=== PATIENT | male | born 1945 | race Caucasian/White ===

== ENCOUNTER 2022-09-08 06:00 | Day surgery (SDC) | payer OTHER ==
[~2022-09-08] VITALS: Ht 193 cm; Wt 103.4 kg
[2022-09-08] MEDS ORDERED: MEPERIDINE HCL/PF 25 MG/ML DISP.SYRIN ONE (06:59)
[2022-09-08] MEDS ORDERED: MIDAZOLAM HCL 5 MG/5 ML VIAL ONE (06:59)
[2022-09-08 17:32] VITALS: BP_SYST 129
[2022-09-08] MEDS ORDERED: LOSA100T23 PO (17:58)
[2022-09-08] MEDS ORDERED: SACU1TAB PO (17:58)
[2022-09-08] MEDS ORDERED: TAMS0.4C96 PO (17:58)
[2022-09-08] MEDS ORDERED: EMPA10TA PO (17:58)
[2022-09-08] MEDS ORDERED: FURO40TA5 PO (17:58)
[2022-09-08] MEDS ORDERED: HYDR4TAB57 PO (17:58)
[2022-09-08] MEDS ORDERED: ATOR10TA68 PO (17:58)
[2022-09-08] MEDS ORDERED: SPIR25TA6 PO (17:58)
[2022-09-08] MEDS ORDERED: VERA180T59 PO (17:58)
== END 2022-09-08 11:58 | disposition admitted as inpatient to this hospital (09) ==
LOC: SDS 06:00
PROVIDERS: ATTEND Internal Medicine Gastroenterology
DX: Z12.11 Encounter for screening for malignant neoplasm of colon (principal); K29.50 Unspecified chronic gastritis without bleeding; I48.91 Unspecified atrial fibrillation; I11.0 Hypertensive heart disease with heart failure; I50.9 Heart failure, unspecified; E78.5 Hyperlipidemia, unspecified; J44.9 Chronic obstructive pulmonary disease, unspecified; G47.00 Insomnia, unspecified; I25.10 Atherosclerotic heart disease of native coronary artery without angina pectoris; Z85.038 Personal history of other malignant neoplasm of large intestine; Z20.822 Contact with and (suspected) exposure to COVID-19; Z79.899 Other long term (current) drug therapy
CPT/HCPCS: 44389; 43239; 87426; 87081; 36415; 88305; 88312; 99152; 99153; G0378; J2250; 88313; J2175

== ENCOUNTER 2022-09-08 12:06 | Inpatient (IN) | payer OTHER ==
[~2022-09-08] VITALS: Ht 193 cm; Wt 116.1 kg
--- NOTE | 2022-09-08 12:10 | NUR ---
Pt brought in by ROOFING CONTRACTOR gave report of mechanical fall Pt complains of right side hip and right knee pain. Pt denies LOC, skin integrity complete. Pt completed post colonoscopy EGD with drowsiness from noted medication Versed 5 mg and Demerol 50 mg. Pt is awake alert oriented x3.
[2022-09-08 12:28] VITALS: BP_SYST 152
--- NOTE | 2022-09-08 12:30 | NUR ---
ER at bedside examining patient.
--- NOTE | 2022-09-08 12:53 | NUR ---
GRAY Garcia provided EKG service.
[2022-09-08] MEDS ORDERED: MORPHINE 4 MG INJ. 4 MG/ML VIAL IVP ONE ×2 (14:00→16:30)
[2022-09-08 14:48] LABS: BASOPHILS % (AUTO) 0.4 % (0.0-2.0); EOSINOPHILS # (AUTO) 0.1 K/uL (0.0-0.4); HEMATOCRIT 41.7 % (36-54); HEMOGLOBIN 13.8 g/dL (14.0-18.0); LYMPHOCYTES # (AUTO) 0.6 K/uL (1.0-5.5); LYMPHOCYTES % (AUTO) 7.5 % (20.5-51.5); MEAN CORPUSCULAR HEMOGLOBIN 30 pg (27-31); MEAN CORPUSCULAR HGB CONC 33 % (32-36); MEAN CORPUSCULAR VOLUME 91 fL (79.0-98.0); MONOCYTES # (AUTO) 0.4 K/uL (0.0-1.0); MONOCYTES % (AUTO) 5.2 % (1.7-9.3); NEUTROPHILS # (AUTO) 6.3 K/uL (1.8-7.7); NEUTROPHILS % (AUTO) 85.9 % (40.0-70.0); PLATELET COUNT (AUTO) 192 K/uL (130-430); RED CELL DISTRIBUTION WIDTH 15.6 % (9.0-15.0); WHITE BLOOD COUNT (AUTO) 7.4 K/uL (4.8-10.8)
[2022-09-08 15:05] LABS: PROTHROMBIN TIME 10.6 SECS (9.5-12.5)
[2022-09-08 15:08] LABS: ALANINE AMINOTRANSFERASE 18 U/L (12-78); ALBUMIN 3.6 g/dL (3.4-4.8); ANION GAP 8 (5-15); ASPARTATE AMINOTRANSFERASE 23 U/L (10-37); CALCIUM 8.7 mg/dL (8.4-11.0); CHLORIDE 102 mmol/L (98-107); CREATININE 1.14 mg/dL (0.55-1.30); GLUCOSE 97 mg/dL (70-99); UREA NITROGEN, BLOOD 15 mg/dL (8-21)
[2022-09-08] MEDS ORDERED: ACETAMINOPHEN 325 MG TABLET PO PRN (17:30)
--- NOTE | 2022-09-08 17:37 | NUR ---
IV TO RIGHT HAND 22 GAUGE FLUSHES, NO INFILLTRATION NOTED
--- NOTE | 2022-09-08 17:47 | NUR ---
Admit bed requested Patient will be admitted to care of . Admitted to MEDSURG unit. Diagnosis HIP FX Inpatient (Yes or No) Y Observation (Yes or No) N Orientation concerns or request close to nursing station (Yes or No) N Covid Status On vent or bipap NO Isolation requirements NO Needs a sitter NO From Home (Yes or if No enter name of facility) YES Requires Dialysis (Yes or No) NO Med Rec Completed (Yes of No) YES
--- NOTE | 2022-09-08 17:51 | NUR ---
CONSULT: CONSULT FOR DR JONATHAN CAMPBELL CALLED THROUGH DR DE SANTIAGO
[2022-09-08] MEDS ORDERED: HYDR4TAB57 PO (17:58)
[2022-09-08] MEDS ORDERED: SACU1TAB PO (17:58)
[2022-09-08] MEDS ORDERED: TAMS0.4C96 PO (17:58)
[2022-09-08] MEDS ORDERED: EMPA10TA PO (17:58)
[2022-09-08] MEDS ORDERED: VERA180T59 PO (17:58)
[2022-09-08] MEDS ORDERED: SPIR25TA6 PO (17:58)
[2022-09-08] MEDS ORDERED: FURO40TA5 PO (17:58)
[2022-09-08] MEDS ORDERED: ATOR10TA68 PO (17:58)
[2022-09-08] MEDS ORDERED: LOSA100T23 PO (17:58)
--- NOTE | 2022-09-08 18:21 | NUR ---
Patient will be admitted to care of PATRICIA Argueta. Admitted to Medsurg unit. Will go to room 116a. Belongings list completed. Complete and up to date summary report printed. SBAR report to be given at bedside with opportunity for questions.
[2022-09-08] MEDS: MORPHINE 4 MG INJ. 4 MG/ML VIAL IVP PRN ×2 (20:30→21:06)
--- NOTE | 2022-09-08 20:48 | NUR ---
Paged Dr. Dash, s/w Graham
[2022-09-08] MEDS ORDERED: hydrALAZINE HCL 20 MG/ML VIAL IVP PRN (22:45)
[2022-09-08] MEDS: TEMAZEPAM 7.5 MG CAPSULE PO PRN (22:53)
[2022-09-09] MEDS: MORPHINE 4 MG INJ. 4 MG/ML VIAL IVP PRN ×6 (00:35→21:22)
[2022-09-09 01:09] VITALS: BP_SYST 139
--- NOTE | 2022-09-09 04:36 | NUR ---
CONSULTATION PAGED REASON FOR CONSULTATION: HIP FX, CARDIAC CLEARANCE FOR SURGERY WAS CONSULT CALLED? Y PERSON WHO WAS NOTIFIED: RAFIQ CONSULTING PHYSICIAN: DR. COFFEY REQUESTING PHYSICIAN: DR. FRANCIS
--- NOTE | 2022-09-09 06:00 | NUR ---
PATIENT HAD NO OUTPUT ON NOC SHIFT RN KATHARINA AND SENSOR TECHNICIAN NURSE LU ARE AWARE Addendum: 09/09/22 at 0601 by Emily Stringer CNA Amended: Links added.
--- NOTE | 2022-09-09 06:40 | NUR ---
CONSULTATION PAGED REASON FOR CONSULTATION:URINARY RETENTION; 2t BPH HX WAS CONSULT CALLED?Y PERSON WHO WAS NOTIFIED:VOICEMAIL LEFT CONSULTING PHYSICIAN:JOSELIN CARMEN SMALL ELECTRIC ENGINE TECHNICIAN SPECIALTY:UROLOGY SMALL ELECTRIC ENGINE TECHNICIAN PHONE NUMBER:[phone] REQUESTING PHYSICIAN CORNELL HESTER
[2022-09-09 07:33] LABS: BASOPHILS % (AUTO) 0.3 % (0.0-2.0); EOSINOPHILS # (AUTO) 0.1 K/uL (0.0-0.4); HEMATOCRIT 42.2 % (36-54); LYMPHOCYTES # (AUTO) 0.5 K/uL (1.0-5.5); LYMPHOCYTES % (AUTO) 4.8 % (20.5-51.5); MEAN CORPUSCULAR HEMOGLOBIN 30 pg (27-31); MEAN CORPUSCULAR HGB CONC 33 % (32-36); MEAN CORPUSCULAR VOLUME 90 fL (79.0-98.0); MONOCYTES # (AUTO) 0.4 K/uL (0.0-1.0); MONOCYTES % (AUTO) 3.8 % (1.7-9.3); NEUTROPHILS % (AUTO) 90.1 % (40.0-70.0); PLATELET COUNT (AUTO) 155 K/uL (130-430); RED BLOOD CELL COUNT(AUTO) 4.69 MIL/uL (4.2-6.2); RED CELL DISTRIBUTION WIDTH 15.5 % (9.0-15.0)
[2022-09-09 08:00] VITALS: BP_SYST 151
[2022-09-09 08:43] LABS: ALANINE AMINOTRANSFERASE 17 U/L (12-78); ALBUMIN 3.6 g/dL (3.4-4.8); ANION GAP 13 (5-15); ASPARTATE AMINOTRANSFERASE 22 U/L (10-37); CALCIUM 8.7 mg/dL (8.4-11.0); CHLORIDE 103 mmol/L (98-107); CREATININE 1.07 mg/dL (0.55-1.30); GLUCOSE 115 mg/dL (70-99); UREA NITROGEN, BLOOD 19 mg/dL (8-21)
[2022-09-09 11:05] LABS: BILIRUBIN,URINE 1+ (NEGATIVE); BLOOD, URINE 3+ (NEGATIVE); COLOR,URINE YELLOW (YELLOW); GLUCOSE,URINE 1+ (NEGATIVE); KETONES,URINE 1+ (NEGATIVE); LEUKOCYTE ESTERASE ,URINE NEGATIVE (NEGATIVE); NITRITE, URINE NEGATIVE (NEGATIVE); PH,URINE 5.5 (5.0-8.0); PROTEIN URINE 1+ (NEGATIVE); UROBILINOGEN,URINE 0.2 (0.2-1.0)
[2022-09-09 11:07] LABS: CLARITY/URINE CLEAR (CLEAR)
[2022-09-09 11:27] LABS: BACTERIA,URINE FEW /HPF (None Seen); MUCUS,URINE 1+ /LPF (None Seen); RBC,URINE 20-50 /HPF (0-3); WBC,URINE 0-3 /HPF (0-3)
[2022-09-09] MEDS: FINASTERIDE 5 MG TABLET (PROSCAR) PO SCH (12:40)
[2022-09-09] MEDS: TAMSULOSIN HCL 0.4 MG CAP PO SCH (12:40)
[2022-09-09 12:41] VITALS: BP_SYST 152
--- NOTE | 2022-09-09 14:20 | NUR ---
DR FRANCIS PAGED FOUR TIMES FOR MED REC AND PAIN MED ORDERS FOR PT. A&O, VSS, C/O PAIN IN R HIP. UROLOGIST INSERTED SWANSON CATHETER AT BEDSIDE @1000, VERY DIFFICULT INSERTION. PT GIVEN MORPHINE NEEDED FOR PAIN BUT PATIENT STATES ITS NOT ENOUGH. FALL PRECAUTIONS IN PLACE, WAITING FOR CALL BACK FROM
--- NOTE | 2022-09-09 14:38 | NUR ---
CARE ENDORSED TO ONCOMING RN
--- NOTE | 2022-09-09 14:58 | NUR ---
Social service assessment: The patient is a 76 year old male who is alert and oriented. I completed an initial assessment with the patient at bedside. The patient resides in a single-story home with his and granddaughter. Prior to his admission to the hospital, he was using no assistive devices. He was independent with his care needs and still able to drive. He does not have a Power of Nuclear Supervising Operator. His biggest form of support is his family. his PCP is Dr. Mckenzie in [place]. The discharge plan is to return home with his . The patient was advised that at time of discharge, he will be assessed for appropriate needs and services. The patient states he is looking to have PT home health at time of discharge. The patient states he has used home health in the past, but can not recall what agency he was using. The patient is in agreement to the discharge plan. At time of discharge, the patient states his will transport him home. Addendum: 09/09/22 at 1506 by Precious HERNANDEZ Amended: Links added.
[2022-09-09] MEDS ORDERED: TAMSULOSIN HCL 0.4 MG CAP PO SCH (15:30)
[2022-09-09] MEDS ORDERED: FUROSEMIDE 40 MG TABLET PO ONE (15:45)
[2022-09-09] MEDS ORDERED: ATORVASTATIN 10 MG TABLET PO ONE (15:45)
[2022-09-09] MEDS ORDERED: SPIRONOLACTONE 25 MG TABLET (ALDACTONE) PO ONE (15:45)
[2022-09-09 16:34] VITALS: BP_SYST 150
[2022-09-09 20:00] VITALS: BP_SYST 114
[2022-09-09] MEDS: SACUBITRIL/VALSARTAN 24 MG-26 MG 1 TABLET PO SCH (20:51)
[2022-09-09] MEDS: FUROSEMIDE 40 MG TABLET PO SCH (20:52)
[2022-09-10] VITALS: BP_SYST 125
[2022-09-10] MEDS: MORPHINE 4 MG INJ. 4 MG/ML VIAL IVP PRN (01:51)
[2022-09-10 04:00] VITALS: BP_SYST 136
[2022-09-10 08:00] VITALS: BP_SYST 162
--- NOTE | 2022-09-10 08:00 | NUR ---
Start of shift. Pt sitting up in bed. Pt is NPO for surgery today for fx. right hip. No SOB/resp distress or chest pain/discomfort noted at this time. Call light within reach. IV in right hand intact and patent.
[2022-09-10] MEDS: SPIRONOLACTONE 25 MG TABLET (ALDACTONE) PO SCH (08:39)
[2022-09-10] MEDS: FUROSEMIDE 40 MG TABLET PO SCH ×3 (08:40→21:26)
[2022-09-10] MEDS: TAMSULOSIN HCL 0.4 MG CAP PO SCH (08:40)
[2022-09-10] MEDS: SACUBITRIL/VALSARTAN 24 MG-26 MG 1 TABLET PO SCH ×2 (08:40→21:27)
[2022-09-10] MEDS: ATORVASTATIN 10 MG TABLET PO SCH (08:40)
[2022-09-10] MEDS: FINASTERIDE 5 MG TABLET (PROSCAR) PO SCH (08:41)
--- NOTE | 2022-09-10 09:35 | NUR ---
OR move Pt off the floor via bed to OR for right hip surgery.
[2022-09-10] MEDS ORDERED: MEPERIDINE HCL/PF 50 MG/ML VIAL ONE (09:40)
[2022-09-10] MEDS ORDERED: NS IRRIG SOLN 1000 ML IR ONE (09:40)
[2022-09-10] MEDS ORDERED: LR 1,000 ML IV.SOLN IV ONE (09:40)
[2022-09-10] MEDS ORDERED: SEVOFLURANE 15 MIN GAS INH ONE (09:40)
[2022-09-10] MEDS ORDERED: ceFAZolin SODIUM 2 GM VIAL ONE (09:40)
[2022-09-10] MEDS ORDERED: PROPOFOL 200MG/ 20ML VIAL (DIPRIVAN) IV ONE (09:40)
[2022-09-10] MEDS ORDERED: VANCOMYCIN HCL 1000 MG/VIAL IV ONE (09:40)
[2022-09-10] MEDS ORDERED: fentaNYL CITRATE/PF 100 MCG/2 ML AMP ONE (09:40)
[2022-09-10] MEDS ORDERED: BUPIVACAINE /EPINEPHRINE/PF 0.5% 30 ML VIAL INJ ONE (09:40)
[2022-09-10] MEDS ORDERED: NS 1000 ML IV.SOLN IV ONE (09:40)
[2022-09-10] MEDS ORDERED: ONDANSETRON HCL 4 MG/2 ML VIAL ONE (09:40)
[2022-09-10] MEDS ORDERED: METOCLOPRAMIDE HCL 10 MG/2 ML VIAL IVP PRN (10:30)
[2022-09-10] MEDS ORDERED: ONDANSETRON HCL 4 MG/2 ML VIAL IVP PRN (10:30)
[2022-09-10] MEDS ORDERED: LR 1,000 ML IV SCH (10:30)
[2022-09-10] MEDS ORDERED: MEPERIDINE HCL/PF 25 MG/ML DISP.SYRIN IVP PRN (10:30)
[2022-09-10 10:57] VITALS: BP_SYST 162
[2022-09-10] MEDS ORDERED: HYDROmorphone 1 MG/ML INJ. CARTRIDGE IVP PRN ×3 (11:00)
[2022-09-10] MEDS ORDERED: NALOXONE HCL 0.4 MG/ML AMP (NARCAN) IVP PRN ×4 (12:15→16:00)
[2022-09-10] MEDS ORDERED: HYDROmorphone 1 MG/ML INJ. CARTRIDGE ONE (12:35)
[2022-09-10] MEDS: HYDROmorphone 1 MG/ML INJ. CARTRIDGE IVP PRN ×3 (12:37→18:43)
[2022-09-10] MEDS: ceFAZolin SODIUM 2 GM in NS 100 ML IV SCH ×2 (12:52→21:31)
--- NOTE | 2022-09-10 13:40 | NUR ---
Note Pt back to floor from OR via bed. Right hip dressing CDI and abductor pillow between legs. Pt was given ice chips to swallow to moisten mouth. Also IS given and instructed use. Call light within reach.
--- NOTE | 2022-09-10 15:20 | NUR ---
Note Pt was given ice chips and instructed to use IS q1 WA 10X. Pt tolerating well. Pt was given Dilaudid 0.4mg IVP and PT at bedside to work with pt at this time. Pt denies any needs at this time. Call light within reach.
[2022-09-10 16:09] VITALS: BP_SYST 154
--- NOTE | 2022-09-10 19:00 | NUR ---
Note Pt's has been at bedside assisting pt in eating his dinner. Pt's IV in left arm intact and patent infusing IVF's well. Pt's shah catheter intact and draining well. Pt stable. Call light within reach. Pt's abductor in place between legs.
[2022-09-10 20:00] VITALS: BP_SYST 149
[2022-09-10] MEDS: ACETAMINOPHEN 500 MG TABLET PO SCH (21:27)
[2022-09-10] MEDS: oxyCODONE HCL 5 MG TABLET PO PRN (23:28)
[2022-09-11 01:35] VITALS: BP_SYST 141
[2022-09-11] MEDS: oxyCODONE HCL 5 MG TABLET PO PRN ×4 (04:35→23:33)
[2022-09-11] MEDS: ceFAZolin SODIUM 2 GM in NS 100 ML IV SCH (04:37)
[2022-09-11] MEDS: ACETAMINOPHEN 500 MG TABLET PO SCH ×3 (06:00→23:03)
[2022-09-11 08:08] LABS: ALANINE AMINOTRANSFERASE 13 U/L (12-78); ALBUMIN 3.4 g/dL (3.4-4.8); ANION GAP 11 (5-15); ASPARTATE AMINOTRANSFERASE 25 U/L (10-37); CALCIUM 8.2 mg/dL (8.4-11.0); CHLORIDE 99 mmol/L (98-107); CREATININE 1.17 mg/dL (0.55-1.30); GLUCOSE 125 mg/dL (70-99); TOTAL BILIRUBIN 1.4 mg/dL (0.0-1.0); UREA NITROGEN, BLOOD 22 mg/dL (8-21)
[2022-09-11 08:46] LABS: BASOPHILS % (AUTO) 0.3 % (0.0-2.0); EOSINOPHILS % (AUTO) 0.1 % (0.0-4.0); HEMATOCRIT 42.9 % (36-54); HEMOGLOBIN 14.4 g/dL (14.0-18.0); LYMPHOCYTES # (AUTO) 0.4 K/uL (1.0-5.5); LYMPHOCYTES % (AUTO) 3.6 % (20.5-51.5); MEAN CORPUSCULAR HEMOGLOBIN 31 pg (27-31); MEAN CORPUSCULAR HGB CONC 34 % (32-36); MEAN CORPUSCULAR VOLUME 91 fL (79.0-98.0); MONOCYTES # (AUTO) 0.7 K/uL (0.0-1.0); MONOCYTES % (AUTO) 7.1 % (1.7-9.3); NEUTROPHILS # (AUTO) 8.8 K/uL (1.8-7.7); NEUTROPHILS % (AUTO) 88.9 % (40.0-70.0); PLATELET COUNT (AUTO) 134 K/uL (130-430); RED BLOOD CELL COUNT(AUTO) 4.71 MIL/uL (4.2-6.2); RED CELL DISTRIBUTION WIDTH 15.5 % (9.0-15.0); WHITE BLOOD COUNT (AUTO) 9.9 K/uL (4.8-10.8)
[2022-09-11] MEDS: FUROSEMIDE 40 MG TABLET PO SCH ×3 (08:53→20:26)
[2022-09-11] MEDS: ATORVASTATIN 10 MG TABLET PO SCH (08:53)
[2022-09-11] MEDS: TAMSULOSIN HCL 0.4 MG CAP PO SCH (08:54)
[2022-09-11] MEDS: SACUBITRIL/VALSARTAN 24 MG-26 MG 1 TABLET PO SCH ×2 (08:55→20:25)
[2022-09-11] MEDS: SPIRONOLACTONE 25 MG TABLET (ALDACTONE) PO SCH (08:55)
[2022-09-11] MEDS: FINASTERIDE 5 MG TABLET (PROSCAR) PO SCH (08:55)
[2022-09-11] MEDS: HYDROmorphone 1 MG/ML INJ. CARTRIDGE IVP PRN (10:04)
[2022-09-11 11:22] VITALS: BP_SYST 132
[2022-09-11] MEDS ORDERED: POTASSIUM CHLORIDE 20 MEQ/PKT PACKET PO ONE (12:15)
--- NOTE | 2022-09-11 15:08 | NUR ---
Dietitian Recommendations * 2 gm Na diet, Pepe BID (supplement yields 180 kcal/day, 5 gm protein/day) * High-protein snacks TID between meals (peanut butter cup w/ banana, turkey slices and carrot sticks, and Czech yogurt) * Encourage good PO intakes LP, MS, RD Please refer to Nutrition Assessment for details. Addendum: 09/11/22 at [address] Amended: Links added.
--- NOTE | 2022-09-11 15:34 | NUR ---
PHYSICAL THERAPY CO-SIGN The Physical Therapy Progress Notes documented by Master Control Technician have been reviewed. Reviewed/Co-Signed by: Tristen Issa Documentation Done by:MARELY CLIFTON Addendum: 09/11/22 at 1534 by Tristen Issa PT Amended: Links added.
[2022-09-11 16:55] VITALS: BP_SYST 129
--- NOTE | 2022-09-11 19:13 | NUR ---
pt a&o. refusing abduction wedge. incision c/d/i. pain medication given prn. fall precautions in place. therapy worked with patient. alyssa patent. ostomy self care.
[2022-09-11 19:56] VITALS: BP_SYST 101
--- NOTE | 2022-09-11 20:00 | NUR ---
Report received from day shift RN for continuity of care. Patient in stable condition.
--- NOTE | 2022-09-11 20:07 | NUR ---
Report received from day shift RN for continuity of care. Patient stable. No distress noted. Abductor pillow at bedside. Patient wants to use at night.
[2022-09-12] VITALS: BP_SYST 124
[2022-09-12 04:00] VITALS: BP_SYST 128
[2022-09-12] MEDS: oxyCODONE HCL 5 MG TABLET PO PRN ×4 (05:19→21:44)
[2022-09-12] MEDS: ACETAMINOPHEN 500 MG TABLET PO SCH ×2 (05:35→14:54)
[2022-09-12 06:22] LABS: ANION GAP 4 (5-15); CALCIUM 8.2 mg/dL (8.4-11.0); CHLORIDE 99 mmol/L (98-107); CREATININE 1.11 mg/dL (0.55-1.30); GLUCOSE 113 mg/dL (70-99); UREA NITROGEN, BLOOD 24 mg/dL (8-21)
--- NOTE | 2022-09-12 06:52 | NUR ---
Dr. Urias paged regarding patient's lab values. Awaiting call back.
--- NOTE | 2022-09-12 07:06 | NUR ---
Reported to Dr. Urias lab results. New orders noted and carried out.
--- NOTE | 2022-09-12 07:12 | NUR ---
Report given to day shift RN for continuity of care. Patient stable throughout the whole night.
--- NOTE | 2022-09-12 07:30 | NUR ---
MORNING ROUNDS: PATIENT AWAKE DURING ROUNDS. IV AT LEFT HAND. RIGHT HIP DRESSING CLEAN AND DRY. SWANSON DRAINING TO JIMMIE URINE.CALL LIGHT WITH IN REACH. BED LOCKED AT LOWEST POSITION. CONTINUE TO MONITOR.
--- NOTE | 2022-09-12 10:00 | NUR ---
IV OUT: TRIED IV INSERTION. NO SUCCESS. HARD STICK.WILL LET OTHER NURSES TRY LATER.PATIENT WANTS TO REST.
[2022-09-12] MEDS: SPIRONOLACTONE 25 MG TABLET (ALDACTONE) PO SCH (10:35)
[2022-09-12] MEDS: FUROSEMIDE 40 MG TABLET PO SCH ×3 (10:35→20:35)
[2022-09-12] MEDS: SACUBITRIL/VALSARTAN 24 MG-26 MG 1 TABLET PO SCH ×3 (10:36→23:12)
[2022-09-12] MEDS: FINASTERIDE 5 MG TABLET (PROSCAR) PO SCH (10:36)
[2022-09-12] MEDS: TAMSULOSIN HCL 0.4 MG CAP PO SCH (10:36)
[2022-09-12] MEDS: POTASSIUM CHLORIDE 20 MEQ TAB.PRT.SR PO PRN (10:38)
[2022-09-12] MEDS: ATORVASTATIN 10 MG TABLET PO SCH (10:39)
[2022-09-12 11:11] VITALS: BP_SYST 105
[2022-09-12] MEDS ORDERED: POTASSIUM CHLORIDE 20 MEQ TAB.PRT.SR PO ONE (11:30)
--- NOTE | 2022-09-12 14:30 | NUR ---
PHYSICAL THERAPY: PHYSICAL THERAPIST WORKING WITH THE PATIENT. PATIENT SITTING ON THE CHAIR. STABLE.
--- NOTE | 2022-09-12 19:00 | NUR ---
END OF SHIFT: ENDORSED TO NIGHT NURSE,PATIENT NEEDS NEW IV SITE. RIGHT HIP DRESSING, CLEAN AND DRY.CALL LIGHT WITH IN REACH. BED LOCKED AT LOWEST POSITION. SWANSON IN SITU. STABLE.
[2022-09-12 19:08] VITALS: BP_SYST 134
--- NOTE | 2022-09-12 19:30 | NUR ---
OPENING NOTE PT LYING IN BED, EYES OPENED. BREATHING EVEN AND NONLABORED. VSS. NO S/S OF ACUTE DISTRESS. PT REPORTED HIP PAIN 12/19. WAITING FOR NEXT DOSE OF PAIN MEDICATION. SWANSON CATHETER IN SITU. BED ALARM ON AND LOWEST POSITION. SAFETY CHECKS MADE. CALL LIGHT IN REACH. CONTINUE TO MONITOR.
[2022-09-12 20:00] VITALS: BP_SYST 112
[2022-09-12] MEDS: SENNOSIDES 8.6 MG TABLET PO SCH (20:35)
[2022-09-13 01:24] VITALS: BP_SYST 118
[2022-09-13 02:13] VITALS: BP_SYST 112
--- NOTE | 2022-09-13 03:30 | NUR ---
IV INSERTION TRIED TO OBTAIN IV ACCESS BUT NOT SUCCESS. PT REFUSED ANOTHER TRIAL.
[2022-09-13] MEDS: oxyCODONE HCL 5 MG TABLET PO PRN ×3 (04:06→20:35)
--- NOTE | 2022-09-13 07:30 | NUR ---
MORNING ROUNDS: PATIENT RESTING QUIETLY ON HIS BED. NO IV ACCESS,PATIENT REFUSED IV INSERTION. RIGHT HIP DRESSING CLEAN AND DRY. SWANSON IN SITU DRAINING TO JIMMIE URINE. CALL LIGHT WITH IN REACH. BED LOCKED AT LOWEST POSITION. NO ACUTE DISTRESS.
--- NOTE | 2022-09-13 07:32 | NUR ---
CLOSING NOTE PT LYING IN BED, EYES OPENED. BREATHING EVEN AND NONLABORED. VSS. NO S/S OF ACUTE DISTRESS OR PAIN. BED ALARM ON AND LOWEST POSITION. SAFETY CHECKS MADE. CALL LIGHT IN REACH. ENDORSED TO DAY SHIFT NURSE
[2022-09-13 08:00] VITALS: BP_SYST 131
[2022-09-13] MEDS ORDERED: ENOXAPARIN SODIUM 40 MG/0.4 ML SYRINGE SUBCUT SCH (09:00)
[2022-09-13] MEDS: TAMSULOSIN HCL 0.4 MG CAP PO SCH (09:42)
[2022-09-13] MEDS: FUROSEMIDE 40 MG TABLET PO SCH ×3 (09:44→20:36)
[2022-09-13] MEDS: POTASSIUM CHLORIDE 20 MEQ TAB.PRT.SR PO PRN (09:47)
[2022-09-13] MEDS: ATORVASTATIN 10 MG TABLET PO SCH (09:49)
[2022-09-13] MEDS: SPIRONOLACTONE 25 MG TABLET (ALDACTONE) PO SCH (09:49)
[2022-09-13] MEDS: SACUBITRIL/VALSARTAN 24 MG-26 MG 1 TABLET PO SCH ×2 (09:51→20:33)
[2022-09-13] MEDS: FINASTERIDE 5 MG TABLET (PROSCAR) PO SCH (09:54)
--- NOTE | 2022-09-13 11:56 | NUR ---
MD ROUNDS: INFORMED DR HUFF PATIENT REFUSED IV INSERTION.
[2022-09-13] MEDS: ACETAMINOPHEN 500 MG TABLET PO SCH ×2 (14:36→21:19)
[2022-09-13 16:00] VITALS: BP_SYST 115
--- NOTE | 2022-09-13 18:43 | NUR ---
END OF SHIFT: PATIENT WATCHING TV.RELAXED. RIGHT HIP DRESSING CLEAN AND DRY. SWANSON INTACT. NOT IN ANY DISTRESS.
[2022-09-13 19:55] VITALS: BP_SYST 138
--- NOTE | 2022-09-13 20:00 | NUR ---
RECEIVED PT IN BED, AOX4, DENIED ANY SOB, CP OR PAIN, R HIP WITH PRESSURE DSG, CLEAN, DRY AND INTACT, LLQ WITH COLOSTOMY, CLEAN AND DRY SITE, PT HAS NO IV ACCESS AND WAS INFROMED DR. HUFF IS AWARE, F/C DRAINING UNDER GRAVITY, YELLOW AND CLEAR URINE, BUTTOCK WITH REDNESS AND APLIED WITH Z-GUARD, WILL CONTINUE WITH POC
[2022-09-13] MEDS: TEMAZEPAM 7.5 MG CAPSULE PO PRN (20:41)
[2022-09-13] MEDS: SENNOSIDES 8.6 MG TABLET PO SCH (21:19)
[2022-09-14 01:46] VITALS: BP_SYST 108
[2022-09-14] MEDS: ACETAMINOPHEN 500 MG TABLET PO SCH ×3 (06:09→23:47)
[2022-09-14] MEDS: oxyCODONE HCL 5 MG TABLET PO PRN ×3 (06:16→21:00)
[2022-09-14 06:25] LABS: BASOPHILS % (AUTO) 0.6 % (0.0-2.0); EOSINOPHILS # (AUTO) 0.2 K/uL (0.0-0.4); EOSINOPHILS % (AUTO) 3.1 % (0.0-4.0); HEMATOCRIT 40.9 % (36-54); HEMOGLOBIN 14.2 g/dL (14.0-18.0); LYMPHOCYTES # (AUTO) 0.7 K/uL (1.0-5.5); LYMPHOCYTES % (AUTO) 10.8 % (20.5-51.5); MEAN CORPUSCULAR HEMOGLOBIN 31 pg (27-31); MEAN CORPUSCULAR HGB CONC 35 % (32-36); MEAN CORPUSCULAR VOLUME 89 fL (79.0-98.0); MONOCYTES # (AUTO) 0.7 K/uL (0.0-1.0); MONOCYTES % (AUTO) 10.6 % (1.7-9.3); NEUTROPHILS # (AUTO) 5.2 K/uL (1.8-7.7); NEUTROPHILS % (AUTO) 74.9 % (40.0-70.0); PLATELET COUNT (AUTO) 155 K/uL (130-430); RED BLOOD CELL COUNT(AUTO) 4.58 MIL/uL (4.2-6.2); RED CELL DISTRIBUTION WIDTH 15.6 % (9.0-15.0); WHITE BLOOD COUNT (AUTO) 6.9 K/uL (4.8-10.8)
--- NOTE | 2022-09-14 06:35 | NUR ---
PT IN BED, AOX4, DENIED ANY SOB, CP OR PAIN, NO CHANGE DURING SHIFT, R HIP WITH PRESSURE DSG, CLEAN, DRY AND INTACT, LLQ WITH COLOSTOMY, CLEAN AND DRY SITE, NO IV ACCESS, DR. HUFF IS AWARE, F/C DRAINING UNDER GRAVITY, YELLOW AND CLEAR URINE, BUTTOCK WITH REDNESS AND APPLIED WITH Z-GUARD, SAFETY PREC MAINTAINED, CALL LIGHT WITHIN REACH, WILL ENDORSE TO INCOMING RN
[2022-09-14 06:56] LABS: ALANINE AMINOTRANSFERASE 15 U/L (12-78); ALBUMIN 2.7 g/dL (3.4-4.8); ANION GAP 8 (5-15); ASPARTATE AMINOTRANSFERASE 16 U/L (10-37); CHLORIDE 96 mmol/L (98-107); CREATININE 1.16 mg/dL (0.55-1.30); GLUCOSE 105 mg/dL (70-99); TOTAL BILIRUBIN 1.2 mg/dL (0.0-1.0); UREA NITROGEN, BLOOD 31 mg/dL (8-21)
--- NOTE | 2022-09-14 08:29 | NUR ---
RECD A CALL FROM LAB RE; CRITICAL LAB RESULT K+ 2.8. PAGED DR. CORNELL FRANCIS TO NOTIFY HIM OF THIS.
[2022-09-14 11:06] VITALS: BP_SYST 111
[2022-09-14] MEDS: POTASSIUM CHLORIDE 20 MEQ TAB.PRT.SR PO PRN ×2 (11:11→20:59)
[2022-09-14] MEDS: TAMSULOSIN HCL 0.4 MG CAP PO SCH (11:12)
[2022-09-14] MEDS: FUROSEMIDE 40 MG TABLET PO SCH ×3 (11:12→20:59)
[2022-09-14] MEDS: ATORVASTATIN 10 MG TABLET PO SCH (11:12)
[2022-09-14] MEDS: FINASTERIDE 5 MG TABLET (PROSCAR) PO SCH (11:12)
[2022-09-14] MEDS: SPIRONOLACTONE 25 MG TABLET (ALDACTONE) PO SCH (11:15)
[2022-09-14] MEDS: SACUBITRIL/VALSARTAN 24 MG-26 MG 1 TABLET PO SCH ×2 (11:26→21:00)
[2022-09-14 11:30] VITALS: BP_SYST 111
--- NOTE | 2022-09-14 15:43 | NUR ---
PHYSICAL THERAPY CO-SIGN The Physical Therapy Progress Notes documented by Signal System Testing Maintainer have been reviewed. Reviewed/Co-Signed by: Elier Valles Documentation Done by:MARELY CLIFTON Addendum: 09/14/22 at 1544 by Elier Valles PT Amended: Links added.
[2022-09-14 15:50] VITALS: BP_SYST 136
--- NOTE | 2022-09-14 19:30 | NUR ---
OPENING NOTE Pt is awake lying in bed. No s/s of respiratory distress. Breathing even and unlabored on RA. Pt does not have any IV access and refuses one, MD aware. Fall and safety precautions in place with bed in lowest position, bed alarm on, and call light within reach
[2022-09-14 20:00] VITALS: BP_SYST 133
[2022-09-14] MEDS: SENNOSIDES 8.6 MG TABLET PO SCH (20:59)
[2022-09-14] MEDS: DABIGATRAN ETEXILATE MESYLATE 75 MG CAPSULE PO SCH (21:05)
--- NOTE | 2022-09-15 00:15 | NUR ---
ROUNDS Pt is lying in bed, eyes closed. No s/s of acute distress. Fall and safety checks in place
[2022-09-15 00:31] VITALS: BP_SYST 129
[2022-09-15] MEDS: oxyCODONE HCL 5 MG TABLET PO PRN ×4 (01:10→21:04)
--- NOTE | 2022-09-15 07:29 | NUR ---
CLOSING NOTE Pt is awake lying in bed. No s/s of respiratory distress. Breathing even and unlabored on RA. Pt does not have any IV access and refuses one, MD aware. All needs met throughout shift. Fall and safety precautions in place with bed in lowest position, bed alarm on, and call light within reach
[2022-09-15 07:39] LABS: ANION GAP 10 (5-15); CHLORIDE 98 mmol/L (98-107); GLUCOSE 100 mg/dL (70-99); UREA NITROGEN, BLOOD 34 mg/dL (8-21)
[2022-09-15 08:00] VITALS: BP_SYST 135
[2022-09-15] MEDS: TAMSULOSIN HCL 0.4 MG CAP PO SCH (09:17)
[2022-09-15] MEDS: SPIRONOLACTONE 25 MG TABLET (ALDACTONE) PO SCH (09:17)
[2022-09-15] MEDS: FINASTERIDE 5 MG TABLET (PROSCAR) PO SCH (09:17)
[2022-09-15] MEDS: ATORVASTATIN 10 MG TABLET PO SCH (09:17)
[2022-09-15] MEDS: SACUBITRIL/VALSARTAN 24 MG-26 MG 1 TABLET PO SCH ×2 (09:19→21:20)
[2022-09-15] MEDS: FUROSEMIDE 40 MG TABLET PO SCH ×3 (09:22→21:05)
[2022-09-15] MEDS: DABIGATRAN ETEXILATE MESYLATE 75 MG CAPSULE PO SCH ×2 (09:23→21:10)
[2022-09-15 11:15] VITALS: BP_SYST 146
[2022-09-15] MEDS: ACETAMINOPHEN 500 MG TABLET PO SCH ×2 (14:00→22:00)
[2022-09-15] MEDS ORDERED: SENN-153 PO (15:08)
--- NOTE | 2022-09-15 15:09 | NUR ---
PHYSICAL THERAPY CO-SIGN The Physical Therapy Progress Notes documented by Geochemical Manager have been reviewed. Reviewed/Co-Signed by: Tristen Issa Documentation Done by:MARELY CLIFTON Addendum: 09/15/22 at 1509 by Tristen Issa PT Amended: Links added.
[2022-09-15 15:20] VITALS: BP_SYST 104
[2022-09-15 20:00] VITALS: BP_SYST 151
[2022-09-15] MEDS: SENNOSIDES 8.6 MG TABLET PO SCH (21:04)
[2022-09-15] MEDS: TEMAZEPAM 7.5 MG CAPSULE PO PRN (21:04)
[2022-09-16] VITALS: BP_SYST 138
[2022-09-16] MEDS: HYDROmorphone 1 MG/ML INJ. CARTRIDGE IVP PRN ×3 (02:59→12:00)
[2022-09-16] MEDS: ONDANSETRON HCL 4 MG/2 ML VIAL IVP PRN ×3 (03:02→12:27)
[2022-09-16] MEDS: ACETAMINOPHEN 500 MG TABLET PO SCH ×2 (06:00→13:02)
[2022-09-16 08:02] VITALS: BP_SYST 121
[2022-09-16] MEDS: ATORVASTATIN 10 MG TABLET PO SCH (08:14)
[2022-09-16] MEDS: SPIRONOLACTONE 25 MG TABLET (ALDACTONE) PO SCH (08:15)
[2022-09-16] MEDS: FUROSEMIDE 40 MG TABLET PO SCH (08:15)
[2022-09-16] MEDS: DABIGATRAN ETEXILATE MESYLATE 75 MG CAPSULE PO SCH (08:16)
[2022-09-16] MEDS: SACUBITRIL/VALSARTAN 24 MG-26 MG 1 TABLET PO SCH (08:45)
[2022-09-16] MEDS: FINASTERIDE 5 MG TABLET (PROSCAR) PO SCH (10:08)
[2022-09-16] MEDS: TAMSULOSIN HCL 0.4 MG CAP PO SCH (10:08)
[2022-09-16] MEDS: oxyCODONE HCL 5 MG TABLET PO PRN (10:11)
[2022-09-16 12:00] VITALS: BP_SYST 125
--- NOTE | 2022-09-16 12:33 | NUR ---
Patient verbalizes understanding of teaching regarding continuing shah catheter for two weeks, durable medical equipment at home and follow up with physical therapy.
[2022-09-16] MEDS ORDERED: TEMAZEPAM 15 MG CAPSULE PO PRN (13:15)
--- NOTE | 2022-09-16 14:00 | NUR ---
Removal of intact right hand 22 gauge intravenous catheter and identification and blood bank wrist bands. Discharge of patient to home via private automobile. Spouse present for discharge instruction and verbalizes understanding that equipment was to be delivered to home. She says she has not received it. Given phone number of Coordinator, Zeinab, if needing any further assistance. Patient and family verbalize understanding of teaching.
--- NOTE | 2022-09-16 15:46 | NUR ---
PHYSICAL THERAPY CO-SIGN The Physical Therapy Progress Notes documented by Kiln Puller have been reviewed. Reviewed/Co-Signed by: Elier Valles Documentation Done by:MARELY CLIFTON Addendum: 09/16/22 at 1546 by Elier Valles PT Amended: Links added.
== END 2022-09-16 13:55 | disposition home health service (06) | DRG 521 ==
LOC: SED 12:06 → SMU 17:20
PROVIDERS: ADMIT Family Medicine; ATTEND Family Medicine
PROC: 0T7D7ZZ Dilation of Urethra, Via Natural or Artificial Opening (ICD-10-PCS; 2022-09-10)
PROC: 0SRR0JZ Replacement of Right Hip Joint, Femoral Surface with Synthetic Substitute, Open Approach (ICD-10-PCS; principal; 2022-09-10 09:40)
DX: S72.091A Other fracture of head and neck of right femur, initial encounter for closed fracture (principal); I50.23 Acute on chronic systolic (congestive) heart failure; I42.0 Dilated cardiomyopathy; R33.9 Retention of urine, unspecified; Z20.822 Contact with and (suspected) exposure to COVID-19; I50.9 Heart failure, unspecified; N35.919 Unspecified urethral stricture, male, unspecified site; I48.91 Unspecified atrial fibrillation; I25.10 Atherosclerotic heart disease of native coronary artery without angina pectoris; I11.0 Hypertensive heart disease with heart failure; E87.6 Hypokalemia; W01.0XXA Fall on same level from slipping, tripping and stumbling without subsequent striking against object, initial encounter; I25.2 Old myocardial infarction; Y93.89 Activity, other specified; Y92.89 Other specified places as the place of occurrence of the external cause; Y99.8 Other external cause status; Z85.038 Personal history of other malignant neoplasm of large intestine; Z79.899 Other long term (current) drug therapy
CPT/HCPCS: 36415; 71045; 72192-TC; 73501; 73502; 76376; 80048; 80053; 81000; 82550; 83735; 83880; 85025; 85610-TC; 85730-TC; 86886; 86900; 86901; 87081; 88305; 88311; 93005; 93306; 94010; 96374; 96376; 97110-GP; 97112-GP; 97116-GP; 97163-GP; 97530-GP; 99285; C1776; J0690; J1170; J1650; J2175; J2270; J2405; J2704; J3010; J3370; J3490; J7030; J7120